=== PATIENT | female | born 1980 | race Caucasian/White ===

== ENCOUNTER 2021-09-22 11:57 | Emergency (ER) | payer OTHER ==
[~2021-09-22] VITALS: Ht 165.1 cm; Wt 70.3 kg
[2021-09-22] MEDS ORDERED: BUPROPION XL450 MG PO (12:58)
[2021-09-22] MEDS ORDERED: ULTRAM50 MG PO (12:59)
[2021-09-22] MEDS ORDERED: ALYACEN1 EACH PO (12:59)
[2021-09-22] MEDS ORDERED: VYVANSE50 MG PO (13:00)
[2021-09-22] MEDS ORDERED: TRAZODONE HCL150 MG (13:00)
[2021-09-22] MEDS ORDERED: PROTONIX40 M1 PO (13:01)
[2021-09-22] MEDS ORDERED: WELLBUTRIN XL300 MG PO (15:31)
[2021-09-22] MEDS ORDERED: WELLBUTRIN XL150 M1 PO (15:32)
[2021-09-22] MEDS ORDERED: AMOX-CLAV 875-1 EAC1 PO (17:24)
[2021-09-22] MEDS ORDERED: PEPCID AC20 MG PO (17:24)
[2021-09-22] MEDS ORDERED: INTESTINEX680 M1 PO (17:24)
[2021-09-22] MEDS ORDERED: FLUCONAZOLE150 MG PO (17:24)
== END 2021-09-22 18:16 ==
LOC: ER 11:57
DX: S61.451A Open bite of right hand, initial encounter (principal); W54.0XXA Bitten by dog, initial encounter; Y93.9 Activity, unspecified; Y92.410 Unspecified street and highway as the place of occurrence of the external cause; K31.84 Gastroparesis

== ENCOUNTER 2022-05-20 09:50 | Emergency (ER) | payer OTHER ==
[~2022-05-20] VITALS: Ht 165.1 cm; Wt 71.7 kg
[~2022-05-20 09:50] MED LIST: ALYACEN1 EACH PO; AMOX-CLAV 875-1 EAC1 PO; BUPROPION XL450 MG PO; FLUCONAZOLE150 MG PO; INTESTINEX680 M1 PO; PEPCID AC20 MG PO; PROTONIX40 M1 PO; TRAZODONE HCL150 MG; ULTRAM50 MG PO; VYVANSE50 MG PO; WELLBUTRIN XL150 M1 PO; WELLBUTRIN XL300 MG PO
[2022-05-20] MEDS ORDERED: TRAZODONE HCL50 MG (10:11)
[2022-05-20] MEDS ORDERED: TRAZODONE HCL150 MG (10:12)
[2022-05-20] MEDS ORDERED: ALLEGRA ALLERGY60 MG (10:12)
[2022-05-20] MEDS ORDERED: VITAMIN B-121000 MC4 (10:12)
== END 2022-05-20 12:43 | disposition home or self-care (01) ==
LOC: ER 09:50
DX: J02.9 Acute pharyngitis, unspecified (principal); F41.9 Anxiety disorder, unspecified; Z88.8 Allergy status to other drugs, medicaments and biological substances

== ENCOUNTER 2022-08-03 10:13 | Emergency (ER) | payer OTHER ==
[~2022-08-03] VITALS: Ht 165.1 cm; Wt 68.0 kg
[~2022-08-03 10:13] MED LIST changes: +ALLEGRA ALLERGY60 MG; +TRAZODONE HCL50 MG; +VITAMIN B-121000 MC4
[2022-08-03] MEDS ORDERED: POLY119PG PO (18:38)
== END 2022-08-03 19:24 | disposition home or self-care (01) ==
LOC: ER 10:13
DX: K59.00 Constipation, unspecified (principal); Z88.8 Allergy status to other drugs, medicaments and biological substances; Z98.890 Other specified postprocedural states; K21.9 Gastro-esophageal reflux disease without esophagitis; F32.89 Other specified depressive episodes; Z20.822 Contact with and (suspected) exposure to COVID-19